=== PATIENT | female | born 1980 | race African-American/Black ===

== ENCOUNTER → 2017-11-23 | Emergency (ER) | payer SELFPAY ==
[~2017-11-23] VITALS: Ht 160 cm; Wt 56.7 kg
[~2017-11-23] MED LIST: HYDROCODONE/APAP 5MG-325MG TAB PO ONE; IBUPROFEN 600 MG TAB PO STA
== END | disposition home or self-care (01) ==
LOC: ER 22:26
DX: S60.221A Contusion of right hand, initial encounter (principal); W23.0XXA Caught, crushed, jammed, or pinched between moving objects, initial encounter; Y92.29 Other specified public building as the place of occurrence of the external cause; F17.210 Nicotine dependence, cigarettes, uncomplicated
CPT/HCPCS: 99283